=== PATIENT | male | born 1960 | race Caucasian/White ===

== ENCOUNTER 2019-10-16 19:07 | Observation (INO) ==
[2019-10-16 19:50] LABS: Basophils # 0.1 K/mcL (0.0-0.2); Basophils % 1.1 %; Eosinophils # 0.4 K/mcL (0.0-0.6); Eosinophils % 3.1 %; Hematocrit 43.4 % (37.5-50.1); Immature Granulocytes % 0.4 % (0-4); Lymphocytes # 4.3 K/mcL (0.6-4.6); Lymphocytes % 34.1 %; Mean Corpuscular HGB Conc 34.6 g/dL (31.6-35.5); Mean Corpuscular Hemoglobin 32.8 pg (28.0-33.3); Mean Platelet Volume 9.4 fL (9.4-12.4); Monocytes # 0.9 K/mcL (0.0-1.3); Monocytes % 7.2 %; Neutrophils # 6.8 K/mcL (1.6-8.9); Platelet Count 285 K/mcL (140-400); Red Blood Count 4.57 M/mcL (4.19-5.50); Red Cell Distribution Width 12.9 % (11.5-14.5); Segmented Neutrophils % 54.1 %; White Blood Count 12.6 K/mcL (4.3-11.1)
[2019-10-16 19:51] LABS: Bacteria,Urine Few per hpf (None-Few); Bilirubin,Urine Negative (Negative); Blood,Urine Negative (Negative); Clarity,Urine Clear (Clear); Color,Urine Colorless (Yellow); Glucose,Urine (UA) 100 mg/dL (Normal); Ketones,Urine Negative (Negative); Leukocyte Esterase,Urine Negative (Negative); Nitrite,Urine Negative (Negative); Protein,Urine Negative (Neg-Trace); Specific Gravity,Urine 1.005 (1.010-1.025); Urobilinogen,Urine Normal (Normal)
[2019-10-16 19:52] LABS: Acetaminophen < 10 mcg/mL (10-20); BUN/Creatinine Ratio 10 (6-26); Blood Urea Nitrogen 8 mg/dL (8-23); Calcium 9.4 mg/dL (8.6-10.3); Carbon Dioxide 22 mEq/L (23-29); Chloride 104 mEq/L (98-107); Ethanol 128 mg/dL (Less than 10); Glucose 204 mg/dL (70-105); Osmolality,Calculated 284 (280-300); Potassium 3.6 mEq/L (3.5-5.1); Salicylate < 2.5 mg/dL (15.0-30.0); Sodium 135 mEq/L (136-145); eGFR For African Americans > 60 (> 60); eGFR For Non-African Americans > 60 (> 60)
[2019-10-16 19:54] LABS: Amphetamine Screen,Urine Negative ng/mL (Cutoff=1000); Barbiturate Screen,Urine Negative ng/mL (Cutoff=200); Benzodiazepines Screen,Urine Negative ng/mL (Cutoff=200); Cannabinoid Screen,Urine Negative ng/mL (Cutoff = 50); Cocaine Screen,Urine Negative ng/mL (Cutoff= 300); Opiate Screen,Urine Negative ng/mL (Cutoff=300); Phencyclidine Screen,Urine Negative ng/mL (Cutoff=25)
[2019-10-16] MEDS ORDERED: hydrOXYzine pamoate 25 MG CAPSULE PO PRN (23:36)
[2019-10-16] MEDS ORDERED: Haloperidol Lactate 5 MG/ML VIAL IM PRN (23:36)
[2019-10-16] MEDS ORDERED: Ibuprofen 400 MG TABLET PO PRN (23:36)
[2019-10-16] MEDS ORDERED: MOM Conc 10 ML UD.LIQ PO PRN (23:36)
[2019-10-16] MEDS ORDERED: traZODone 50 MG TABLET PO PRN (23:36)
[2019-10-16] MEDS ORDERED: haloperidoL 5 MG TABLET PO PRN (23:36)
[2019-10-16] MEDS ORDERED: *HR* LORazepam 1 MG TABLET PO PRN (23:36)
[2019-10-16] MEDS ORDERED: Mag Hydrox/Al Hydrox/Simeth 30 ML UDC PO PRN (23:36)
[2019-10-16] MEDS ORDERED: *HR* LORazepam 2 MG/ML VIAL IM PRN (23:36)
[2019-10-17 00:14] LABS: Thyroid Stimulating Hormone 3.549 mcIU/mL (0.340-5.600)
[2019-10-17] MEDS ORDERED: GlipiZIDE 5 MG TABLET PO SCH (08:00)
[2019-10-17 08:11] LABS: Estimated Average Glucose 166 mg/dl
[2019-10-17] MEDS ORDERED: Fenofibrate 54 MG TABLET PO SCH (09:00)
[2019-10-17] MEDS ORDERED: BuPROPion XL (24 HR) 150 MG TABLET PO SCH (09:00)
[2019-10-17] MEDS ORDERED: Valsartan 160 MG TABLET PO SCH (09:00)
[2019-10-17 09:10] VITALS: BP 143/86
== END 2019-10-17 11:05 | disposition home or self-care (01) ==
LOC: EMEROOARM 19:07 → 1ANU 23:35 → INTOOBSV 23:35 → 1ANU 10-17 00:15
PROVIDERS: ADMIT Psychiatry & Neurology Psychiatry; ATTEND Psychiatry & Neurology Psychiatry